=== PATIENT | male | born 1960 | race Caucasian/White ===

== ENCOUNTER → 2020-03-24 14:18 | Outpatient (CLI) | payer MEDICAID, SELFPAY ==
[2020-03-24 14:41] LABS: Basophils # 0.1 K/mm3 (0-0.2); Basophils % 1.3 % (0.1-2.0); Eosinophils # 0.2 K/mm3 (0.0-0.4); Eosinophils % 3.8 % (0.1-12.0); Hematocrit 49.2 % (42.0-52.0); Hemoglobin 16.3 g/dL (14.1-18.0); Lymphocytes # 1.5 K/mm3 (0.7-4.5); Lymphocytes % 26.9 % (10-50); Mean Corpuscular HGB Conc 33.1 g/dL (31.8-35.4); Mean Corpuscular Hemoglobin 30.6 pg (27.0-31.2); Mean Corpuscular Volume 92.5 fl (80-94); Mean Platelet Volume 8.1 fl (7.4-10.4); Monocytes # 0.3 K/mm3 (0.1-1.0); Monocytes % 5.8 % (1.7-9.3); Neutrophils # 3.4 K/mm3 (1.8-7.8); Neutrophils % 62.2 % (37.0-80.0); Platelet Count 341 K/mm3 (142-424); Red Blood Count 5.32 M/mm3 (4.60-6.20); White Blood Count 5.5 K/mm3 (4.8-10.8)
[2020-03-24 15:08] LABS: Alanine Aminotransferase 9 U/L (12-78); Albumin Level 4.6 g/dl (3.5-5.0); Albumin/Globulin Ratio 1.5 (1.1-1.8); Alkaline Phosphatase 89 U/L (38-126); Anion Gap 11.9 mEq/L (5-15); Aspartate Amino Transferase 34 U/L (17-59); Blood Urea Nitrogen 23 mg/dl (9-20); Calcium 9.6 mg/dl (8.4-10.2); Carbon Dioxide 30 mmol/L (22.0-30.0); Chloride 100 mmol/L (98-107); Chol/HDL Ratio 2.8 (1-3.5); Cholesterol 191 mg/dl (140-200); Estimated Glomerular Filt Rate 77 ml/min (>60); GFR (African American) 93 ML/MIN (>60); Globulin 3.1 g/dL (1.3-3.2); Glucose 94 mg/dl (74-100); HDL Cholesterol 69 mg/dl (40-60); Potassium 4.9 mmoL/L (3.5-5.1); Sodium 137 mmol/L (136-145); Total Protein,Serum 7.7 g/dl (6.3-8.2); Triglycerides 78 mg/dl (30-150); VLDL Cholesterol 16 mg/dL (0-40)
[2020-03-24 15:19] LABS: Direct LDL Cholesterol 110.52 mg/dL (100-129)
[2020-03-24 15:25] LABS: 25-OH Vitamin D, Total 33.1 ng/mL (30-100)
[2020-03-24 15:40] LABS: Thyroid Stimulating Hormone 2.81 uIU/mL (0.465-4.68)
== END ==
PROVIDERS: Visit Provider Emergency Medicine
DX: R53.83 Other fatigue (principal); E55.9 Vitamin D deficiency, unspecified
CPT/HCPCS: 80053; 80061; 82306; 84439; 84443; 85025

== ENCOUNTER → 2020-04-03 10:31 | Outpatient (CLI) | payer MEDICAID, SELFPAY ==
[2020-04-03 12:12] LABS: Prostate Specific Ag Screen 2.2 ng/ml (0.0-4.0)
== END ==
PROVIDERS: Visit Provider Urology
DX: R35.1 Nocturia (principal)
CPT/HCPCS: 36415; G0103

== ENCOUNTER → 2020-05-27 14:46 | Outpatient (CLI) | payer MEDICAID, SELFPAY ==
[2020-05-27 15:59] LABS: Coronavirus 19 IgG Antibody Negative (Negative); Coronavirus 19 IgM Antibody Negative (Negative)
== END ==
PROVIDERS: Visit Provider Surgery
DX: Z01.818 Encounter for other preprocedural examination (principal); Z12.11 Encounter for screening for malignant neoplasm of colon
CPT/HCPCS: 36415; 86328

== ENCOUNTER 2020-05-29 09:29 | Day surgery (SDC) | payer MEDICAID, SELFPAY ==
[2020-05-27 14:25] VITALS: BMI 24.9
[2020-05-27 14:39] VITALS: BMI 24.9
[2020-05-29 09:46] VITALS: BP 170/88; PULSE 88; RESP 18; TEMP 36.4; O2SAT 98
--- NOTE | 2020-05-29 09:59 | HMH.ANESCL ---
[facility] Anesthesia Checklist - Patient Identification Patient Identification: Arm Band - Structural Data Admitted From: Home Planned Operative Procedure/s: colonoscopy Consent for Planned Operative Procedure(s) Verified: Yes Verified Documents: Surgical Consent, History and Physical - NPO Status Verified Time NPO: 00:00 - Additional verifications Anesthesia Reactions: No - Airway Assessment C-Spine Mobility Assessed: Yes (mp2) TMJ Mobility Assessed: Yes Dentition: Edentulous - Neurological Assessment Level of Consciousness: Awake, Alert - Anesthesia Plan Anesthesia Risk discussed: Yes Anesthesia Plan: Verified ASA Class: I Anesthesia Type: MAC [facility] History I have reviewed the patient's past medical history: Yes Medical History: Denies:: Cancer, Diabetes Mellitus Type 1, Diabetes Mellitus Type 2, Internal Pacemaker, MRSA, Seizures *Have you ever received a pneumonia vaccine?: No *Have you received a flu vaccine this season?: No Anesthesia experience/problems:: nac Other Surgeries: Yes: No Previous Surgery. No: Pacemaker Amputation: No Fractures: Yes (rt hand) - *Social History Smoking Status: Former smoker Alcohol Intake: never Substance Use Type: denies use *Occupational Status:: employed Housing: house Household Members: family *Travel in the last 8 weeks: None Family Hx:: No significant family history
[2020-05-29 11:45] VITALS: O2SAT 97
--- NOTE | 2020-05-29 12:17 | HMH.SCOPE ---
- Procedure: Date: 05/29/20 Patient Date of :: 1960 Procedure Performed:: Colonoscopy with polypectomy by means other than snare Indications:: Positive Cologuard Performing Provider:: Miguel A Carmen MD Referring Provider:: . Sedation:: Monitored anesthesia care Procedure:: After informed consent was obtained the patient was taken to the endoscopy suite. Sedation ensued after the patient was transferred to the left lateral decubitus position. Pulse, blood pressure, and oxygen saturation were monitored throughout the procedure. Digital rectal exam revealed no significant abnormality. The colonoscope was placed in position. The entire colon was evaluated. The colonoscope was carefully removed and the patient was transferred to recovery in stable condition. Please see findings and specimens below for detail. Findings:: Bowel preparation fair Cluster of hyperplastic-appearing polyps at 15 cm Polyp at 7 cm and adjacent polyp Specimens:: Cluster polyps around 15 cm (multiple biopsies) Polyp at 7 cm and adjacent polyp Recommendations:: Timing of repeat colonoscopy is pending pathology but will likely be between 3-5 years. Consideration of barium enema due to recent positive Cologuard study. Complications:: No immediate Estimated blood obtained (mL): 1
[2020-05-29 12:20] VITALS: BP 94/58; PULSE 74; RESP 18; TEMP 36.2; O2SAT 94
[2020-05-29 12:30] VITALS: BP 116/83; PULSE 94; RESP 18; O2SAT 95
[2020-05-29 12:40] VITALS: BP 141/90; PULSE 93; RESP 18; O2SAT 96
== END 2020-05-29 12:40 ==
LOC: OUTP 09:31
PROVIDERS: PCP Emergency Medicine; Visit Provider Surgery
PROC: 0DJD8ZZ Inspection of Lower Intestinal Tract, Via Natural or Artificial Opening Endoscopic (ICD-10-PCS; CPT 45380; principal; 2020-05-29 10:30)
DX: K62.1 Rectal polyp (principal); Z82.49 Family history of ischemic heart disease and other diseases of the circulatory system; Z80.9 Family history of malignant neoplasm, unspecified
CPT/HCPCS: 45380

== ENCOUNTER → 2020-12-10 07:33 | Outpatient (CLI) | payer MEDICAID, SELFPAY ==
--- NOTE | 2020-12-10 07:49 | ECG_ITS ---
APPROVED REPORT Exam: Resting ECG HR:95 bpm ECG Measurements Heart Rate 95 AXES RI 146 P 88 QRSd 84 QRS 68 QT 346 T 73 QTc 434 Conclusion Normal sinus rhythm Biatrial abnormality Abnormal ECG Electronically signed by : Chris Wilson, 12/10/2020 17:56:32
[2020-12-10 08:01] LABS: Basophils # 0.1 K/mm3 (0-0.2); Eosinophils # 0.3 K/mm3 (0.0-0.4); Eosinophils % 4.5 % (0.1-12.0); Hematocrit 51.3 % (42.0-52.0); Hemoglobin 17.7 g/dL (14.1-18.0); Lymphocytes # 1.8 K/mm3 (0.7-4.5); Lymphocytes % 24.3 % (10-50); Mean Corpuscular HGB Conc 34.5 g/dL (31.8-35.4); Mean Corpuscular Hemoglobin 30.7 pg (27.0-31.2); Mean Platelet Volume 7.5 fl (7.4-10.4); Monocytes # 0.4 K/mm3 (0.1-1.0); Monocytes % 5.7 % (1.7-9.3); Neutrophils # 4.8 K/mm3 (1.8-7.8); Neutrophils % 64.5 % (37.0-80.0); Platelet Count 334 K/mm3 (142-424); Red Blood Count 5.76 M/mm3 (4.60-6.20); Red Cell Distribution Width 13.4 % (11.5-17.5); White Blood Count 7.4 K/mm3 (4.8-10.8)
[2020-12-10 08:22] LABS: Chloride 105 mmol/L (98-107); Potassium 4.7 mmoL/L (3.5-5.1); Sodium 142 mmol/L (136-145)
[2020-12-10 08:25] LABS: Anion Gap 11.7 mEq/L (5-15); Blood Urea Nitrogen 20 mg/dl (9-20); Calcium 9.6 mg/dl (8.4-10.2); Carbon Dioxide 30 mmol/L (22.0-30.0); Estimated Glomerular Filt Rate 62 ml/min (>60); GFR (African American) 75 ML/MIN (>60); Glucose 104 mg/dl (74-100)
[2020-12-10 08:41] LABS: Coronavirus 19 IgG Antibody Positive (Negative); Coronavirus 19 IgM Antibody Negative (Negative)
== END ==
PROVIDERS: Visit Provider Surgery
DX: Z01.818 Encounter for other preprocedural examination (principal); Z20.822 Contact with and (suspected) exposure to COVID-19; D17.9 Benign lipomatous neoplasm, unspecified
CPT/HCPCS: 36415; 80048; 85025; 86328; 93005

== ENCOUNTER 2020-12-12 06:02 | Day surgery (SDC) | payer MEDICAID, SELFPAY ==
[2020-12-11 10:09] VITALS: BMI 26.1
[2020-12-12] VITALS (11 sets, daily range): BP systolic 130–182; BP diastolic 57–104; PULSE 72–90; RESP 16–18; TEMP 36.3–42.7; O2SAT 95–98
--- NOTE | 2020-12-12 07:52 | P.OP_ITS ---
Date of procedure: 12/12/20 Pre-op Diagnosis:: Left abdominal/flank/lower chest wall lipoma (9 cm) Post-op Diagnosis:: same Procedure performed:: Excision of left abdominal/flank/chest wall lipoma Surgeon:: Miguel A Carmen MD ACCOUNT MANAGER B2B:: Navid Hassan Anesthesia: LMA Estimated blood loss (mL): 5 Operative findings:: Lobulated lipomatous growth excised in toto Operative note:: After informed consent was obtained the patient was taken to the operating room and placed in the supine position. General anesthesia with laryngeal mask airway was achieved. His left lower chest and flank/abdominal wall was prepped and draped in a sterile fashion. After infiltration with local anesthetic an incision was made over the central portion of the lesion. A combination of sharp dissection and electrocautery was utilized to transect through the deeper subcutaneous tissue. The lipomatous growth was then carefully elevated as cautery was utilized to transect the surrounding tissue. The lipomatous growth was somewhat lobulated. It was excised in toto and passed off for pathologic evaluation. Electrocautery was utilized to achieve hemostasis. The deep subcutaneous tissue was reapproximated with 2-0 Vicryl. Skin was then closed with running 3-0 Stratafix. Condition: stable Disposition: PACU Specimens:: Lipoma Complications:: No immediate
--- NOTE | 2020-12-12 07:58 | HMH.ANESCL ---
[facility] Anesthesia Checklist - Patient Identification Patient Identification: Arm Band - Structural Data Admitted From: Home Planned Operative Procedure/s: excision left abdominal wall lipoma Consent for Planned Operative Procedure(s) Verified: Yes Verified Documents: Surgical Consent, History and Physical - NPO Status Verified Time NPO: 00:00 - Additional verifications Anesthesia Reactions: No Hx Blood Transfusions: No Blood Transfusion Reaction: No - Airway Assessment C-Spine Mobility Assessed: Yes (mp2) TMJ Mobility Assessed: Yes Dentition: Edentulous - Neurological Assessment Level of Consciousness: Awake, Alert - Anesthesia Plan Anesthesia Risk discussed: Yes Anesthesia Plan: Verified ASA Class: II Anesthesia Type: General [facility] History I have reviewed the patient's past medical history: Yes Medical History: Denies:: Cancer, Diabetes Mellitus Type 1, Diabetes Mellitus Type 2, Internal Pacemaker, MRSA, Seizures *Have you ever received a pneumonia vaccine?: No *Have you received a flu vaccine this season?: No Other Medical History: Denies: Blood Transfusion Reaction Anesthesia experience/problems:: nac Other Surgeries: Yes: Colonoscopy. No: Pacemaker Amputation: No Fractures: Yes (rt hand) - *Social History Last grade of school completed: Some college Smoking Status: Never smoker Alcohol Intake: never Substance Use Type: denies use *Occupational Status:: employed Housing: house Household Members: spouse *Travel in the last 8 weeks: None Family Hx:: No significant family history
--- NOTE | 2020-12-12 07:59 | HMH.ANESI ---
[facility] Anesthesia Record Part I Intake, IV Amount: 900 Estimated blood loss (mL): 5 Urine output (mL): 0 Blood Pressure: 130/83 SaO2: 97 Pulse Rate: 90 Respiratory Rate: 16 Temperature: 99.3 F Patient is:: Drowsy, Stable Stable to PACU at:: 07:55
--- NOTE | 2020-12-12 15:34 | HMH.ANESII ---
[facility] Anesthesia Record Part II Discharge Time: 08:25 Destination: Surgical Day Care (OP Surgery) PACU nurse assessment reviewed?: Yes Patient Condition:: Good Anesthesia Complications:: None Swallowing reflex intact?: Yes Cyanosis?: No Blood Pressure: 143/97 Pulse Rate: 75 Temperature: 98.1 F Mental Status: Alert & Oriented Pain level:: 0 Nausea and/or vomitting:: None Intake, IV Amount: 0
== END 2020-12-12 09:14 | disposition home or self-care (01) ==
PROVIDERS: PCP Emergency Medicine; Visit Provider Surgery
PROC: (CPT 11406; principal; 2020-12-12 07:30)
DX: D17.1 Benign lipomatous neoplasm of skin and subcutaneous tissue of trunk (principal); Z87.891 Personal history of nicotine dependence
CPT/HCPCS: 11406; 12031; 96374; J2405

== ENCOUNTER → 2021-12-15 16:00 | Outpatient (CLI) | payer MEDICAID, SELFPAY ==
[2021-12-15 13:26] LABS: Basophils # 0.1 K/mm3 (0-0.2); Basophils % 1.6 % (0.1-2.0); Eosinophils # 0.2 K/mm3 (0.0-0.4); Eosinophils % 3.9 % (0.1-12.0); Hematocrit 48.8 % (42.0-52.0); Lymphocytes # 1.5 K/mm3 (0.7-4.5); Lymphocytes % 26.2 % (10-50); Mean Corpuscular HGB Conc 32.9 g/dL (31.8-35.4); Mean Corpuscular Hemoglobin 30.8 pg (27.0-31.2); Mean Corpuscular Volume 93.7 fl (80-94); Mean Platelet Volume 8.4 fl (7.4-10.4); Monocytes # 0.3 K/mm3 (0.1-1.0); Monocytes % 6.2 % (1.7-9.3); Neutrophils # 3.5 K/mm3 (1.8-7.8); Neutrophils % 62.2 % (37.0-80.0); Platelet Count 376 K/mm3 (142-424); Red Cell Distribution Width 13.1 % (11.5-17.5); White Blood Count 5.6 K/mm3 (4.8-10.8)
[2021-12-15 13:31] LABS: Chloride 108 mmol/L (98-107); Potassium 4.7 mmoL/L (3.5-5.1); Sodium 142 mmol/L (136-145)
[2021-12-15 13:33] LABS: Blood Urea Nitrogen 22 mg/dl (9-20); Estimated Glomerular Filt Rate 68 ml/min (>60); GFR (African American) 83 ML/MIN (>60)
[2021-12-15 13:34] LABS: Alanine Aminotransferase 13 U/L (12-78); Albumin Level 4.1 g/dl (3.5-5.0); Albumin/Globulin Ratio 1.6 (1.1-1.8); Alkaline Phosphatase 81 U/L (38-126); Anion Gap 9.7 mEq/L (5-15); Aspartate Amino Transferase 33 U/L (17-59); Carbon Dioxide 29 mmol/L (22.0-30.0); Cholesterol 173 mg/dl (140-200); Globulin 2.5 g/dL (1.3-3.2); Total Protein,Serum 6.6 g/dl (6.3-8.2); Triglycerides 79 mg/dl (30-150); VLDL Cholesterol 16 mg/dL (0-40)
[2021-12-15 13:35] LABS: Calcium 8.6 mg/dl (8.4-10.2); Chol/HDL Ratio 3.2 (1-3.5); Glucose 94 mg/dl (74-100); HDL Cholesterol 54 mg/dl (40-60)
[2021-12-15 13:46] LABS: Direct LDL Cholesterol 98.51 mg/dL (100-129)
[2021-12-15 13:51] LABS: Free T4 (Free Thyroxine) 1.22 ng/dl (0.78-2.19)
[2021-12-15 14:05] LABS: Thyroid Stimulating Hormone 1.91 uIU/mL (0.465-4.68)
[2021-12-15 14:16] LABS: 25-OH Vitamin D, Total 21.1 ng/mL (30-100)
[2021-12-15 18:13] LABS: Prostate Specific Ag Screen 3.1 ng/ml (0.0-4.0)
== END ==
PROVIDERS: Visit Provider Emergency Medicine
DX: I10 Essential (primary) hypertension (principal); R53.83 Other fatigue; E55.9 Vitamin D deficiency, unspecified; Z12.5 Encounter for screening for malignant neoplasm of prostate
CPT/HCPCS: 80053; 80061; 82306; 84439; 84443; 85025; G0103